=== PATIENT | male | born 1995 | race African-American/Black ===

== ENCOUNTER 2016-10-30 19:50 | Emergency (ER) | payer MEDICAID ==
[~2016-10-30] VITALS: Ht 180.3 cm; Wt 104.3 kg
[~2016-10-30 19:50] MED LIST: PREDNISONE 20MG20 MG PO; TRIAMCINOLON 0.80 G2 EX
--- NOTE | 2016-10-30 20:26 | Urgent Treatment Center Report ---
History of Present Issue Date/Time Seen by Provider 10/30/162024 Visit Reason Pt arrived:Walked Presenting Problem:PT STATES TWISTING L ANKLE TWO HOURS AGO Location if Accident:Home Onset of symptoms date/time:10/30/16/ or onset unknown for:MEDICAL HX UNKNOWN Have you (or family members/close friends) recently traveled outside the [place]? N If Yes, where/when: Have you had exposure to infectious disease within the past month? TB? Other? Specify: c/o left ankle pain. reports he stepped on uneven sidewalk approx 2 hours ago, "thinks" he twisted his ankle "but really not sure how it happened". Did not fall down. pain lateral aspect immediately. "it was hard to walk". Ice hasn't helped. Hasn't taken or tried anything else. Worried about fracture. Denies N/T. Pain w/ ankle ROM. Source patient Exam Limitations no limitations ALLERGIES Coded Allergies: Penicillins (Intermediate, BLISTER TO MOUTH 08/30/15) cephalexin (From KEFLEX) (Intermediate, I-HIVES 08/30/15) History Medical History General CAD? No Angina: No [place]: No Hypertension? No Hyperlipidemia? No CHF? No DVT? No PE? No COPD? No Asthma? No Anemia? No GERD? No Gastric ulcers? No GI Bleed? No Hernia? No Thyroid Problems? No Hypothyroidism? No CVA? No Seizures? No Diabetes? No Renal Insuffiency? No UTI? No Stones? No BPH? No GB Disease: No Nephritic Syndrome? No Asplenia? No Hepatitis? No Sickle Cell Disease? No Arthritis? No Migraines? No Cataracts? No Glaucoma? No MRSA? No HIV? No TB? No Anxiety? No Depression? No Cancer? No More? No Immunization HX DT/Tetanus 5-10 Years Ago Surgical Hx Previous Surgery?Y arm back surgery leg Social History Smoking Hx Smoker: Never Smoker Tobacco: No Alcohol Alcohol: No Review of Systems All Other Systems Reviewed and Negative Musculoskeletal denies other (no leg or foot pain) Skin see HPI, denies change in color Psychiatric/Neurological see HPI Physical Exam Vital Signs Vital Signs Date Time Temp Pulse Resp B/P Pulse O2 O2 Flow FiO2 Ox Delivery Rate 10/31 2011 97.9 83 18 138/86 95 General Appearance no apparent distress, obese Respiratory Status No: respiratory distress. Cardiovascular no peripheral edema Peripheral Pulses Pulses normal Yes (PT/DP) Back gait abnormality (slight limp) Extremities non-tender (left lower leg, foot), normal range of motion (left toes , knee), swelling (mild, left lateral malleous), limited ROM left ankle Neurologic alert, oriented x 3 Skin intact, normal color, warm/dry Medical Decision Making LABS/Meds/Orders Pt receiving controlled substance in ED? No Results/Orders Orders Procedure Date/time Status STABILIZE JOINT 10/30 2057 Active ANKLE-LT-3 VIEWS 10/30 2013 Active XRAY/CT/US XRAY/CT/US XRAY ankle XR interpretation by reviewed by me (w/ Dr. Espinosa, [place]) Xray Results no acute findings Progress [facility] Progress Notes Date 10/30/16 Time [address] Espinosa to be available to review xray Departure Departure Time of Disposition 2056 Disposition DC Home or Self Care(routine) Clinical Impression Primary Impression: Left ankle sprain Qualifiers: Encounter type: initial encounter Involved ligament of ankle: unspecified ligament Qualified Code: S93.402A - Sprain of unspecified ligament of left ankle, initial encounter Condition STABLE Referrals MELANIE AGUDELO, DEMOND Follow up IMMEDIATELY for new or worsening symptoms OR no noticeable improvement over the next 3-5 days. Patient Instructions DI for Ankle Sprain, How to Apply an Sergio Wrap, How To Perform RICE (Rest, Ice, Compress, Elevate), How to Use Crutches Additional Instructions * weight bearing as tolerated. If it hurts, don't bear weight. * Rest * ice 15-20 mins 3-4 times a day * Sergio wrap and ankle brace for support and swelling unless in shower. Be sure not too tight but not too loose either * Elevate as discussed as much as possible to help reduce swelling and therefore , pain * Ibuprofen every 6 hours as needed for pain and inflammation. If you need something more, you can take tylenol every 4 hours as needed as long as your primary care provider has told you it is ok to take both. Follow up IMMEDIATELY for new or worsening symptoms OR no noticeable improvement over the next 3-5 days. Discharge Counseling Counseled pt/family regarding diagnosis, test results, medications/RX, home care, follow up needs at 2106
[2016-10-30 21:14] VITALS: BP 138/86
--- NOTE | 2016-10-31 05:53 | RADIOLOGY REPORT PS360 ---
ANKLE-LT-3 VIEWS HISTORY: TWISTED ANKLE TWO HOURS AGO ORDERING PHYSICIAN: XUAN WALLER APRN PATIENT AGE: 20 years COMPARISON: None FINDINGS: On the mortise view there is a faint oblique lucency along the distal aspect of the fibula. Could represent a nondisplaced fracture however is normally seen on this one view not distinct. Please correlate with patient's clinical findings. No other significant anomalies are evident. IMPRESSION: Possible nondisplaced fracture of the fibula at the diaphyseal metaphyseal junction which may be confirmed with follow-up radiograph, CT scan, or MRI. Otherwise negative
== END 2016-10-30 21:16 | disposition home or self-care (01) ==
LOC: UTC 19:50
DX: S93.402A Sprain of unspecified ligament of left ankle, initial encounter (principal); X50.1XXA Overexertion from prolonged static or awkward postures, initial encounter; Y92.9 Unspecified place or not applicable

== ENCOUNTER 2017-01-28 14:32 | Emergency (ER) | payer MEDICAID ==
[~2017-01-28] VITALS: Ht 180.3 cm; Wt 113.4 kg
--- OUTSIDE RECORDS SUMMARY | 2017-01-28 14:35 | External Medical Summary Rpt | CCD ---
Author Author , OCTAVIANO BRUMFIELD Address Unknown Phone [email or web address] Purpose Continuity of Care Document - through 2016 Problems Code Diagnosis DOS Provider Status K02.9 Dental caries, unspecified K04.7 Periapical abscess without sinus K08.89 Other specified disorders of teeth and supporting structures
--- OUTSIDE RECORDS SUMMARY | 2017-01-28 14:35 | External Medical Summary Rpt | CCD ---
Author Author , OCTAVIANO BRUMFIELD Address Unknown Phone [email or web address] Purpose Continuity of Care Document - through 2016 Problems Code Diagnosis DOS Provider Status K02.9 Dental caries, unspecified K04.7 Periapical abscess without sinus K08.89 Other specified disorders of teeth and supporting structures
--- OUTSIDE RECORDS SUMMARY | 2017-01-28 14:36 | External Medical Summary Rpt | CCD ---
Author Author [employer] Organization [employer] Address Unknown Phone Unavailable Purpose Continuity of Care Document - through 2016
--- OUTSIDE RECORDS SUMMARY | 2017-01-28 14:36 | External Medical Summary Rpt | CCD ---
Author Author , OCTAVIANO Asencio OCTAVIANO Address Unknown Phone [email or web address] Immunization Name Date Rout CVX Reac Dose Comm Prov Is Faci e tion ent ider Refu lity Give sed n Tdap 12-1 115 999 Hist H108 No H108 , 8-20 oric Adso 08 al rbed Info rmat ion - Sour ce Unsp ecif ied MCV4 12-1 147 999 Hist H108 No H108 UF 8-20 oric 08 al Info rmat ion - Sour ce Unsp ecif ied DTaP 08-1 107 999 Hist H155 No H155 , UF 4-20 oric 01 al Info rmat ion - Sour ce Unsp ecif ied Hep 03-2 42 999 Hist H108 No H108 B, 6-19 oric adol 99 al Info High rmat Ris ion - Sour ce Unsp ecif ied DTaP 03-2 107 999 Hist H108 No H108 , UF 6-19 oric 99 al Info rmat ion - Sour ce Unsp ecif ied Dane 03-2 2 999 Hist H108 No H108 o-OP 6-19 oric V 99 al Info rmat ion - Sour ce Unsp ecif ied MMR 01-1 3 999 Hist H108 No H108 2-19 oric 99 al Info rmat ion - Sour ce Unsp ecif ied DTaP 01-1 107 999 Hist H108 No H108 , UF 2-19 oric 99 al Info rmat ion - Sour ce Unsp ecif ied Dane 01-1 2 999 Hist H108 No H108 o-OP 2-19 oric V 99 al Info rmat ion - Sour ce Unsp ecif ied Hib, 12-0 17 999 Hist H108 No H108 UF 1-19 oric 98 al Info rmat ion - Sour ce Unsp ecif ied MMR 12-0 3 999 Hist H108 No H108 1-19 oric 98 al Info rmat ion - Sour ce Unsp ecif ied DTaP 12-0 107 999 Hist H108 No H108 , UF - oric 98 al Info rmat ion - Sour ce Unsp ecif ied Dane 12-0 2 999 Hist H108 No H108 o-OP 03-22 oric V 98 al Info rmat ion - Sour ce Unsp ecif ied Hep 12-0 8 999 Hist H108 No H108 B, 03-22 oric ped/ 98 al adol Info rmat ion - Sour ce Unsp ecif ied
--- OUTSIDE RECORDS SUMMARY | 2017-01-28 14:36 | External Medical Summary Rpt | CCD ---
Author Author , OCTAVIANO Asencio OCTAVIANO Address Unknown Phone [email or web address] Immunization Name Date Rout CVX Reac Dose [...]
--- NOTE | 2017-01-28 14:56 | Urgent Treatment Center Report ---
History of Present Issue Date/Time Seen by Provider 01/28/17 9116 Visit Reason Pt arrived:Walked Presenting Problem:PT HAS LOWER BACK PAIN THAT STARTED 2 DAYS AGO. DENIES INJURY Location if Accident: Onset of symptoms date/time:/ or onset unknown for:MEDICAL HX UNKNOWN Have you (or family members/close friends) recently traveled outside the [place]? N If Yes, where/when: Have you had exposure to infectious disease within the past month? TB? Other? Specify: Patient state that he was at home and went to stand up from bed about 2 days ago and began having pain in his lower back area. States that he has a previous injury to lower back in which he had surgery on his lower back area 2 years ago. States that he doesn't recall doing anything recently to hurt his lower back just started hurting as he raised up out of bed ALLERGIES Coded Allergies: Penicillins (Intermediate, BLISTER TO MOUTH 08/30/15) cephalexin (From KEFLEX) (Intermediate, I-HIVES 08/30/15) Home Medications Reported Medications No Known Home Medications History Medical History General CAD? No Angina: No [place]: No Hypertension? No Hyperlipidemia? No CHF? No DVT? No PE? No COPD? No Asthma? No Anemia? No GERD? No Gastric ulcers? No GI Bleed? No Hernia? No Thyroid Problems? No Hypothyroidism? No CVA? No Seizures? No Diabetes? No Renal Insuffiency? No UTI? No Stones? No BPH? No GB Disease: No Nephritic Syndrome? No Asplenia? No Hepatitis? No Sickle Cell Disease? No Arthritis? No Migraines? No Cataracts? No Glaucoma? No MRSA? No HIV? No TB? No Anxiety? No Depression? No Cancer? No More? No Immunization HX DT/Tetanus 5-10 Years Ago Surgical Hx Previous Surgery?Y arm back surgery leg Social History Smoking Hx Smoker: Never Smoker Tobacco: No Alcohol Alcohol: No Review of Systems All Other Systems Reviewed and Negative Musculoskeletal back pain, muscle pain Physical Exam Vital Signs Vital Signs Date Time Temp Pulse Resp B/P Pulse O2 O2 Flow FiO2 Ox Delivery Rate 01/28 1502 20 01/28 1439 97.6 85 20 152/90 97 General Appearance normal appearance, WD/WN, no apparent distress Respiratory Status Yes: trachea midline, chest symmetrical, non tender chest. No: respiratory distress. Lung Sounds bilateral: normal breath sounds, lungs clear. Cardiovascular normal exam, regular rate/rhythm, no peripheral edema Back normal inspection, no CVA tenderness, no vertebral tenderness, bowel/ bladder continent, gait normal, muscle spasm, Muscle spasm palpated left lower back area Neurologic alert, normal exam, oriented x 3 Medical Decision Making LABS/Meds/Orders Pt receiving controlled substance in ED? No Results/Orders Current Medication Orders Sig/Zion Start time Last Medication Dose Route Stop Time Status Admin Ketorolac 60 MG ONCE ONE 01/28 1500 DC 01/28 Tromethamine IM 01/28 1501 1502 Orphenadrine Citrate 60 MG ONCE ONE 01/28 1500 DC 01/28 IM 01/28 1501 1501 Ketorolac 0 .STK-MED ONE 01/28 1451 DC Tromethamine .ROUTE Orphenadrine Citrate 0 .STK-MED ONE 01/28 1451 DC .ROUTE Orders Procedure Date/time Status LUMBAR SPINE 5 VIEWS 01/28 1447 Active XRAY/CT/US XRAY/CT/US XRAY L-spine XR interpretation by reviewed by me Xray Results no fracture seen, Straightening of Lspine suggestive of muscle spasm, good disc space, no fractures seen Comment Discussed with Dr Wright Progress [facility] Progress Notes Comment Patient state that pain in lower back area much better after medication Departure Departure Time of Disposition 1511 Disposition DC Home or Self Care(routine) Clinical Impression Primary Impression: Low back pain Qualifiers: Chronicity: acute Back pain laterality: bilateral Sciatica presence : without sciatica Qualified Code: M54.5 - Low back pain Secondary Impressions: Muscle spasm Condition STABLE Patient Instructions DI for Low Back Pain, DI for Muscle Spasm, Low Back Pain Additional Instructions Rotate Ice and heat to lower back area for pain and muscle tension Take medication as prescribed Follow up with family doctor if symptoms persist Return if needed *Ibuprofen olesya 6 hours with meal as needed for pain/inflammation *Remember you had a Toradol shot in the clinic today, which is similar to Motrin *Not additional anti-inflammatory like motrin, aleve, advil with the above amount of ibuprofen. You can still take Tylenol every 4 hours as needed if you need something else for pain *Ice 20 minutes every 2 hours for the first 48 hours after the initial injury followed by moist heat every 20 minutes 3-4 times a day to affected area *Muscle relaxer every 8 hours as needed for muscle spasms but remember, it WILL cause drowsiness You cannot take it and drive, operate machinery or care for small children. *Keep this area active, no movement leads to more stiffness, However take it easy and avoid heavy lifting pushing or pulling Discharge Counseling Counseled pt/family regarding diagnosis, test results, medications/RX, home care, follow up needs Prescriptions Current Visit Scripts Ibuprofen (Ibuprofen 800MG) 800 MG PO QIDP PRN pain #30 TAB Cyclobenzaprine Hcl (Flexeril) 10 MG PO TID #15 TAB at 0654
[2017-01-28] MEDS ORDERED: FLEXERIL10 MG PO (15:14)
[2017-01-28] MEDS ORDERED: IBUPROFEN800 MG PO (15:14)
[2017-01-28 15:18] VITALS: BP 152/90
--- NOTE | 2017-01-28 15:46 | RADIOLOGY REPORT PS360 ---
EXAM: LUMBAR SPINE 5 VIEWS HISTORY: Unremarkable BACK PAIN X 2 DAYS, HX BACK SURGERY ORDERING PHYSICIAN: SANJANA SANTILLAN APRN PATIENT AGE: 21 years COMPARISON: None FINDINGS: Normal alignment. No fracture or dislocation. No lytic or blastic change. No significant degenerative change. The disc spaces are preserved. There is slight decrease in the disc space at L4-L5 suggesting minimal degenerative disc disease. IMPRESSION: No acute finding, minimal degenerative disc disease L4-5
== END 2017-01-28 15:19 | disposition home or self-care (01) ==
LOC: UTC 14:32
DX: M54.5 Low back pain (principal)